=== PATIENT | female | born 1945 | race Caucasian/White ===

== ENCOUNTER 2024-04-26 12:35 | Emergency (ER) | payer OTHER ==
[~2024-04-26] VITALS: Ht 154.9 cm; Wt 77.9 kg
[2024-04-26 12:37] VITALS: BP 148/57; RESP 20; O2SAT 98
[2024-04-26 12:50] VITALS: PULSE 92
== END 2024-04-26 15:04 | disposition home or self-care (01) ==
LOC: ER 12:35
DX: M79.18 Myalgia, other site (principal); I10 Essential (primary) hypertension; E78.5 Hyperlipidemia, unspecified; Z85.3 Personal history of malignant neoplasm of breast; Z98.890 Other specified postprocedural states; Z88.5 Allergy status to narcotic agent
CPT/HCPCS: 71250; 93005